=== PATIENT | female | born 1990 | race Caucasian/White ===

== ENCOUNTER 2017-03-09 17:53 | Emergency (ER) | payer SELFPAY ==
[~2017-03-09] VITALS: Ht 121.9 cm; Wt 75.0 kg
[2017-03-09 17:55] VITALS: BP 139/80; PULSE 78; RESP 16; TEMP 98.3; O2SAT 98
[2017-03-09 18:30] LABS: BLOOD, URINE NEG (NEG); COMMENT (UR) CULTURE INDICATED; CULTURE IF INDICATED CULTURE INDICATED; GLUCOSE,URINE NEG (NEG); KETONE, URINE NEG (NEG); MUCUS URINE FEW /lpf (OCC); NITRITE,URINE NEG (NEG); PH, URINE 6.5 (5.0-8.5); SQUAMOUS EPITHELIAL CELL URINE 14 /hpf (0-5); URINE COLOR YELLOW (YELLW/STRAW)
[2017-03-09] MEDS ORDERED: PHEN0.4T PO (18:50)
[2017-03-09] MEDS ORDERED: MACR100C2 PO (18:50)
--- NOTE | 2017-03-09 18:51 | PD ---
HPI Chief Complaint: Complaint Time Seen by Provider: 18:38 Travel History International Travel<30 days: No Contact w/Intl Traveler<30days: No Traveled to known affect area: No History of Present Illness HPI C/O URGENCY, DYSURIA, FREQUENCY FOR PAST DAY OR SO, STATES SHE HAS HAD UTI BEFORE AND THIS FEELS VERY MUCH LIKE ONE...ALSO C./O BURNING ONURINATION AND SUPRAPUBIC PRESSURE. DENIES VAG BLEEDING/BACK PAIN/N/V/D/ PFSH Past Medical History ?: Unknown Social History Tobacco Use: No Review of Systems Except as stated in HPI: all other systems reviewed are Neg Genitourinary: Positive: Urgency, Frequency, Dysuria Physical Exam Narrative GENERAL: SKIN: Warm and dry. HEAD: Atraumatic. Normocephalic. EYES: Pupils equal and round. No scleral icterus. No injection or drainage. ENT: No nasal bleeding or discharge. Mucous membranes pink and moist. NECK: Trachea midline. No JVD. CARDIOVASCULAR: Regular rate and rhythm. RESPIRATORY: No accessory muscle use. Clear to auscultation. Breath sounds equal bilaterally. GASTROINTESTINAL: Abdomen soft, non-tender, nondistended. NO CVAT MUSCULOSKELETAL: Extremities without clubbing, cyanosis, or edema. No obvious deformities. NEUROLOGICAL: Awake and alert. No obvious cranial nerve deficits. Motor grossly within normal limits. Five out of 5 muscle strength in the arms and legs. Normal speech. PSYCHIATRIC: Appropriate mood and affect; insight and judgment normal. Data Data Last Documented VS Vital Signs Date Time Temp Pulse Resp B/P (MAP) Pulse Ox O2 Delivery O2 Flow Rate FiO2 03/09/17 17:55 98.3 78 16 139/80 (99) 98 Orders Orders Urinalysis - C+S If Indicated (03/09/17 17:58) Ed Urine Pregnancytest Poc (03/09/17 17:58) Urine Culture (03/09/17 18:00) Labs Laboratory Tests Test 03/09/17 18:00 Urine Color YELLOW Urine Turbidity HAZY Urine pH 6.5 Urine Specific [place] 1.032 Urine Protein 30 mg/dL Urine Glucose (UA) NEG mg/dL Urine Ketones NEG mg/dL Urine Occult Blood NEG Urine Nitrite NEG Urine Bilirubin NEG Urine Urobilinogen 2.0 MG/DL Urine Leukocyte Esterase LARGE Urine RBC 5 /hpf Urine WBC 71 /hpf Urine Squamous Epithelial Cells 14 /hpf Urine Mucus FEW /lpf Microscopic Urinalysis Comment CULTURE INDICATED MDM Medical Decision Making Medical Screen Exam Complete: Yes Emergency Medical Condition: Yes Medical Record Reviewed: Yes Differential Diagnosis UTI V RELATED ILLNESS Narrative Course NEGATIVE, UA C/W UTI Diagnosis Primary Impression: ACUTE UTI Patient Instructions: General Instructions, Urinary Tract Infection in Women ( ED) Scripts Phenazopyridine (Pyridium) 100 Mg Tab 100 MG PO Q8H Y for DYSURIA, #15 TAB 0 Refills Prov: Amish Roberts MD 03/09/17 Nitrofurantoin Monohydrate Macrocrystals (Macrobid) 100 Mg Cap 100 MG PO BID for Infection for 7 Days, #14 CAP 0 Refills Prov: Amish Roberts MD 03/09/17 Disposition: 01 DISCHARGE HOME Condition: Stable Amish Roberts MD Mar 09, 2017 18:51
== END 2017-03-09 19:41 | disposition home or self-care (01) ==
LOC: NEPD 17:53
DX: N39.0 Urinary tract infection, site not specified (principal)
CPT/HCPCS: 81001; 84703; 87086; 99284